=== PATIENT | female | born 1935 | race Caucasian/White ===

== ENCOUNTER 2019-12-09 20:01 | Inpatient (IN) | payer MEDICARE, SELFPAY ==
[2019-12-09 20:20] VITALS: BP 99/36; PULSE 67; RESP 18; TEMP 36.8; O2SAT 95
--- NOTE | 2019-12-09 20:52 | PCM.HP.STD ---
Problem List (1) Debility Status: Acute (2) Chronic diarrhea Status: Chronic (3) Nausea & vomiting Status: Acute (4) Fall Status: Acute (5) Closed head injury Status: Acute (6) Hypomagnesemia Status: Acute (7) Hypokalemia Status: Acute (8) Iron deficiency anemia Status: Acute (9) Chronic diastolic (congestive) heart failure Status: Chronic (10) Esophageal stricture Status: Chronic (11) NSTEMI (non-ST elevated myocardial infarction) Status: Chronic (12) HTN (hypertension) Status: Chronic (13) GERD (gastroesophageal reflux disease) Status: Chronic (14) Hypothyroid Status: Chronic (15) HLD (hyperlipidemia) Status: Chronic (16) CAD (coronary artery disease) Status: Chronic Comment: 1978 went to [place] for an angioplasty History of Present Illness Date of Admission: 12/09/19 Chief Complaint: Here for rehabilitation, strengthening, prior to discharge home alone. The patient is a 84 year old Female with below past medical history with followin12/05/2019 Admit to [facility]. Chronic diarrhea x 1 month, nausea, vomiting, fall 1 day prior to admission. Diarrhea every 15 minutes. Diarrhea improved to 3 times per day with Imodium. Fell, hit head. Decreased appetite, but drinking fluids. Replete Magnesium, Replete Potassium. Replace Pantoprazole with Famotidine due to hypomagnesemia. IV Fluids, stool studies for chronic diarrhea, CT abdomen/pelvis negative. IV Fluids, IV Zofran for nausea/vomiting. CT head shows contusion from fall, head injury. COVID-19 negative. 12/06/2019 Dr. Tyler, C. Diff negative. Recommend adding Ova and Parasites. Continue Culturelle 1 capsule daily. Outpatient colonoscopy. 12/08/2019 Diarrhea improving on Flagyl x 1 week. PT [facility]. Continue to replete Magnesium, Potassium. Fecal leukocytes positive, suggesting infection. on Flagyl x 1 week. IV iron for iron deficiency anemia. 12/09/2019 Admit to TCU with debility, here for rehabilitation, strengthening, prior to discharge home alone. Past Medical History Past Medical History (Chronic Problems): Chronic Problems Chronic diarrhea (Chronic) Chronic diastolic (congestive) heart failure (Chronic) Esophageal stricture (Chronic) NSTEMI (non-ST elevated myocardial infarction) (Chronic) H/O angioplasty (Chronic) in [place] in 1978 after [place] HTN (hypertension) (Chronic) GERD (gastroesophageal reflux disease) (Chronic) Hypothyroid (Chronic) HLD (hyperlipidemia) (Chronic) Hx of myocardial infarction (Chronic) CAD (coronary artery disease) (Chronic) 1978 went to [facility] for an angioplasty Allergies morphine Adverse Reaction (Verified 01/20/16 09:37) Nausea naproxen sodium [From Aleve] Adverse Reaction (Verified 01/20/16 09:37) Upset Stomach prednisone Adverse Reaction (Verified 01/20/16 09:37) Upset Stomach Home Medications: Ambulatory Orders Medication Instructions Recorded Aspirin [Aspirin, Baby] 81 mg PO DAILY@0800 01/20/16 Atorvastatin Calcium [Lipitor] 10 mg PO QHS 01/20/16 Calcium Carb/Vitamin D 1 tab PO BID 01/20/16 [Caltrate-600 With Vit D Tab] Estradiol [Estrace] 1 applic VAGINAL MOWEFR 01/20/16 Fluoxetine [Prozac] 10 mg PO DAILY 01/20/16 Levothyroxine [Synthroid] 100 mcg PO DAILY 01/20/16 Magnesium Oxide [Mag-Ox 400] 400 mg PO BID 01/20/16 Multivit-Min/FA/Lycopen/Lutein 1 each PO DAILY 01/20/16 [Centrum Silver Tablet] Acetaminophen 1,000 mg PO Q6H PRN PRN 12/09/19 Clopidogrel Bisulfate [Clopidogrel] 75 mg PO DAILY 12/09/19 Famotidine [Pepcid] 20 mg PO DAILY 12/09/19 Lactobacillus Rhamnosus GG 1 ea PO DAILY 12/09/19 [Culturelle] Losartan Potassium [Cozaar] 100 mg PO DAILY 12/09/19 Melatonin 3 mg PO QHS 12/09/19 Metoprolol(XL)Succ [Toprol Xl 150 mg PO DAILY 12/09/19 (Beta Merlin)] Metronidazole [Flagyl] 250 mg PO Q8 12/09/19 Christmas-3 Fatty Acids/Fish Oil [Fish 2 cap PO DAILY 12/09/19 Oil 1,000 mg Capsule] Ondansetron [Zofran Odt] 4 mg PO Q8H PRN PRN 12/09/19 Surgical History: angioplasty, appendectomy, cataract - BL, cholecystectomy - Laparosocopic., - - Breast biopsy, with an incidental appy, partial thyroidectomy for what sounds like a goiter Psychiatric History: No pertinent psych hx, - - denies any psych hx but she is taking Prozac [employer]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 Review of Systems Constitutional: Denies: Chills, Fever, Weight Change HEENT: Denies: Head Aches, Sinus Congestion, Sinus Drainage Cardiovascular: Denies: Chest Pain, Palpitations Respiratory: Denies: Cough, Shortness of breath at rest, Sputum production Gastrointestinal: Denies: Abdominal Pain, Nausea, Vomiting Genitourinary: Denies: Dysuria Musculoskeletal: Denies: Joint Pain, Joint Tenderness Skin: Denies: Rash, Wounds Neurological: Denies: Numbness, Tingling, Focal weakness Psychiatric: Denies: Anxiety, Depression, Homicidal Ideations, Suicidal Ideations Hematologic/ Lymphatic: Denies: Easy Bruising, Easy Bleeding VTE Information - Inpt Only VTE Present on Admission: No VTE Mechan Device Prophylaxis: Knee High CINDY Hose VTE Pharm Prophylaxis ordered?: No Reason prophylaxis not ordered:: Treatment Not Indicated - Already on dual antiplatelet therapy, has iron deficiency anemia. Patient Problems: Active and Suspected Problems Debility (Acute) Nausea & vomiting (Acute) Fall (Acute) Closed head injury (Acute) Hypomagnesemia (Acute) Hypokalemia (Acute) Iron deficiency anemia (Acute) - Physical Exam Vitals/I&O's: Vital Signs Temp Pulse Resp BP Pulse Ox 98.3 F 67 18 99/36 L 95 12/09/19 20:20 12/09/19 20:20 12/09/19 20:20 12/09/19 20:20 12/09/19 20:20 Oxygen Delivery Method Room Air General: Alert, Oriented x3, Cooperative HEENT: Atraumatic, PERRLA, EOMI, Normocephalic Neck: Supple, No JVD, Negative Carotid Bruits Lungs: Clear to auscultation, Normal air movement Cardiovascular: Regular rate, No murmurs Abdomen: Bowel Sounds Present, Soft, Non Tender Extremities: No edema, Capillary Refill Less than 3 Seconds Skin: No rashes, No breakdown Musculoskeletal: No Tenderness to Palpation of Joints or Extremities Neurological: Cranial nerves II-XII grossly intact Psych/Mental Status: Normal Affect, Appropriate Current Medications Acetaminophen (Tylenol) 1,000 mg PO Q6H PRN PRN PRN Reason: Pain 1-10/10 or Fever Aspirin (Aspirin, Baby) 81 mg PO DAILY@0800 [facility] Atorvastatin Calcium (Lipitor) 10 mg PO QHS [facility] Clopidogrel Bisulfate (Plavix) 75 mg PO DAILY [facility] Famotidine (Pepcid) 20 mg PO DAILY [facility] Fluoxetine HCl (Prozac) 10 mg PO DAILY [facility] Levothyroxine Sodium (Synthroid) 100 mcg PO DAILY [facility] Losartan Potassium (Cozaar) 100 mg PO DAILY [facility] Magnesium Oxide (Mag-Ox 400) 400 mg PO BID [facility] Melatonin (Melatonin) 3 mg PO QHS [facility] Metoprolol Succinate (Toprol Xl (Beta Merlin)) 150 mg PO DAILY [facility] Metronidazole (Flagyl) 250 mg PO Q8 [facility] Stop: 12/13/19 06:01 Multivitamins/Minerals (Multivitamin With Minerals (Bkc)) 1 tablet PO DAILY@1200 [facility] Non-Formulary Medication (Calcium Carb/Vitamin D) 1 tab PO BID [facility] Non-Formulary Medication (Estradiol [Estrace]) 1 applic VAGINAL MOWEFR [facility] Non-Formulary Medication (Lactobacillus Rhamnosus Gg) 1 ea PO DAILY [facility] [id number] Ethyl Esters (Lovaza) 2 gm PO DAILY [facility] Ondansetron HCl (Zofran Odt) 4 mg PO Q8H PRN PRN PRN Reason: NAUSEA/VOMITING Tuberculin PPD (Tubersol, Aplisol, Ppd) 5 tu ID X1 ONE Stop: 12/10/19 10:01 Tuberculin PPD (Tubersol, Aplisol, Ppd) 5 tu ID X1 ONE Stop: 12/17/19 10:01 Assessment/Plan All Active Problems Debility (Acute) Nausea & vomiting (Acute) Fall (Acute) Closed head injury (Acute) Hypomagnesemia (Acute) Hypokalemia (Acute) Iron deficiency anemia (Acute) Elevated troponin (Acute) Fatigue (Acute) 84 year old female with below past medical history hospitalized for chronic diarrhea, fall with head injury, complicated by hypomagnesemia, hypokalemia, acute kidney injury, admitted to TCU with debility, here for rehabilitation, strengthening, prior to discharge home alone. Debility - PT/OT. Pain - Tylenol 1000MG Q6H PRN pain (1-10). Bowel - Hold bowel regimen due to chronic diarrhea. Adult immunization - Administer Prevnar 13, Pneumovax 23, Fluzone as appropriate. DVT prophylaxis - Hold, on dual antiplatelet therapy, history of anemia. Coronary Artery Disease - Metoprolol succinate 150MG daily, Losartan 100MG daily, Plavix 75MG daily, Aspirin 81MG daily. Hyperlipidemia - Atorvastatin 10MG QHS (High intensity statin not tolerated?), Lovaza 2GM daily (No evidence Lovaza decreases CV risk, consider Vascepa 2GM BID as outpatient. Calcium deficiency - Calcium D BID. Nutrition - MVI daily, Ensure 120ML 4x/day. Atrophic Vaginitis - Estrace PV MWF. GERD - Famotidine 20MG daily. Depression - Fluoxetine 10MG daily, stable chronic usp use, GDR not recommended. Chronic diarrhea - Lactobacillus 1 tablet BID, Flagyl 250MG Q8H thru 12/13/2019, Diarrhea 4x/day. Hypothyroidism - Levothyroxine 100MCG daily. Hypomagnesemia - Magnesium Oxide 400MG BID. Insomnia - Melatonin 3MG QHS. Nausea - Zofran 4MG Q8H PRN. Iron deficiency anemia - Rx Ferrex 150MG daily.
[2019-12-09 21:00] VITALS: BMI 29.2
[2019-12-09 21:03] VITALS: BMI 29.3
[2019-12-09] MEDS: Atorvastatin Calcium 10 MG Tablet PO (21:24)
[2019-12-09] MEDS: MELATONIN 3 MG TABLET PO (21:24)
[2019-12-09 23:32] VITALS: PULSE 64; O2SAT 98
[2019-12-09 23:46] VITALS: BP 108/60
[2019-12-10] MEDS: Magnesium Oxide 400 MG Tablet PO ×2 (06:36→16:53)
[2019-12-10] MEDS: Levothyroxine 100 MCG Tablet PO (06:36)
[2019-12-10] MEDS: Clopidogrel Bisulfate 75 MG Tablet PO (06:36)
[2019-12-10] MEDS: FLUoxetine 10 MG Capsule PO (06:36)
[2019-12-10 06:40] VITALS: BP 124/68; PULSE 69
[2019-12-10] MEDS: Famotidine 20 MG Tablet PO (06:40)
[2019-12-10] MEDS: Metoprolol(XL)Succ 50 MG Tablet 150 MG PO (06:40)
[2019-12-10] MEDS: Losartan Potassium 100 MG Tablet PO (06:40)
[2019-12-10 06:53] LABS: Absolute Lymphocyte Count 1.32 X10^3/uL (0.83-4.51); Absolute Neutrophil Count 5.1 X10^3/uL (2.0-7.7); Basophil# 0.04 X10^3/uL; Basophil% 0.5 % (0-1); Eosinophil# 0.52 X10^3/uL; Eosinophils% 6.6 % (0-5); Hemoglobin 8.7 g/dL (12.0-15.0); Lymphocyte # 1.32 X10^3/ul (4.0); Lymphocyte % 16.7 % (19-41); Mean Corp Hgb Conc 32.2 g/dL (32-36); Mean Corpuscular Hgb 31.4 pg (27.0-32.0); Mean Corpuscular Volume 97.5 fL (81-99); Monocyte# 0.92 X10^3/uL; Monocyte% 11.7 % (0-10); NRBC Flagged by Analyzer 0 % (0-5); Neutrophil # 5.06 X10^3/uL (2.7-7.7); Neutrophil % 64.1 % (47-70); Platelet Count 204 K/mm3 (150-450); RBC Distribution Width CV 13.6 % (11.6-14.6); Red Blood Count 2.77 M/mm3 (4.2-5.4); White Blood Count 7.9 K/mm3 (4.4-11.0)
[2019-12-10 07:06] LABS: Anion Gap 6 (5-15); BUN 9 mg/dL (7-18); BUN/Creat Ratio 13.7 RATIO (10-20); Calcium,Total 8.7 mg/dL (8.5-10.1); Chloride 107 mmol/L (98-107); Creatinine, Serum 0.66 mg/dL (0.55-1.02); EST Glomerular Filtration Rate 91 mL/min (>60); Est Glom Filt Rate - Afr Amer 110 mL/min (>60); Glucose 106 mg/dL (74-106); Sodium Level 138 mmol/L (136-145)
[2019-12-10] MEDS: Aspirin 81 MG TAB.CHEW PO (09:17)
[2019-12-10] MEDS: Calcium Carb/Vitamin D 1 TABLET Tablet PO ×2 (09:17→16:53)
[2019-12-10] MEDS: Omega-3 Acid Ethyl Esters 1 GM Capsule 2 GM PO (09:18)
[2019-12-10] MEDS: Tuberculin,Purif.prot.deriv. 50 TU/ML Vial 5 ML ID (10:41)
[2019-12-10] MEDS: Multivitamins,Ther W-Minerals Tablet 1 TABLET PO (10:41)
[2019-12-10] MEDS: Iron Polysaccharide Complex 150 MG CAPSULE PO (10:41)
--- NOTE | 2019-12-10 10:47 | CASEMGMT ---
Social Work Discussed patient's code status. Pt confirmed full code. MOLST form completed and placed in chart. ADELAIDE AvelarW
--- NOTE | 2019-12-10 13:53 | PHA.CONS_ITS ---
<Freddy Bray C - Last Filed: 12/10/19 13:53> Progress Note - Pharmacy Subjective: [] TCU Admission Objective: Allergies morphine Adverse Reaction (Verified 01/20/16 09:37) Nausea naproxen sodium [From Aleve] Adverse Reaction (Verified 01/20/16 09:37) Upset Stomach prednisone Adverse Reaction (Verified 01/20/16 09:37) Upset Stomach Current Medications Generic Name Dose Route Start Last Admin Trade Name Freq PRN Reason Stop Dose Admin Acetaminophen 1,000 mg 12/09/19 20:39 Tylenol PO Q6H PRN PRN Pain 1-05/16 or Fever Aspirin 81 mg 12/10/19 08:00 12/10/19 09:17 Aspirin, Baby PO 81 mg DAILY@0800 VERA Administration Atorvastatin Calcium 10 mg 12/09/19 22:00 12/09/19 21:24 Lipitor PO 10 mg QHS [facility] Administration Calcium/Vitamin D 1 tablet 12/10/19 08:00 12/10/19 09:17 Os-Riley 500mg + D PO 1 tablet 0800,1800 [facility] Administration Clopidogrel Bisulfate 75 mg 12/10/19 06:00 12/10/19 06:36 Plavix PO 75 mg DAILY [facility] Administration Famotidine 20 mg 12/10/19 06:00 12/10/19 06:40 Pepcid PO 20 mg DAILY [facility] Administration Fluoxetine HCl 10 mg 12/10/19 06:00 12/10/19 06:36 Prozac PO 10 mg DAILY [facility] Administration Lactobacillus Acidophilus 1 tablet 12/10/19 06:00 12/10/19 06:36 Acidophilus PO 1 tablet DAILY [facility] Administration Levothyroxine Sodium 100 mcg 12/10/19 06:00 12/10/19 06:36 Synthroid PO 100 mcg DAILY [facility] Administration Losartan Potassium 100 mg 12/10/19 06:00 12/10/19 06:40 Cozaar PO 100 mg DAILY [facility] Administration Magnesium Oxide 400 mg 12/10/19 06:00 12/10/19 06:36 Mag-Ox 400 PO 400 mg BID [facility] Administration Melatonin 3 mg 12/09/19 22:00 12/09/19 21:24 Melatonin PO 3 mg QHS [facility] Administration Metoprolol Succinate 150 mg 12/10/19 06:00 12/10/19 06:40 Toprol Xl (Beta Merlin) PO 150 mg DAILY [facility] Administration Metronidazole 250 mg 12/09/19 22:00 12/10/19 12:56 Flagyl PO 12/13/19 06:01 250 mg Q8 [facility] Administration Multivitamins/Minerals 1 tablet 12/10/19 12:00 12/10/19 10:41 Multivitamin With Minerals (Bkc) PO 1 tablet DAILY@1200 [facility] Administration Non-Formulary Medication 1 applic 12/11/19 22:00 Estradiol [Estrace] VAGINAL MOWEFR [facility] Nutritional Formula (Lactose Free) 120 ml 12/09/19 22:00 12/10/19 10:41 Ensure Enlive PO 120 ml 4X/DAY [facility] Administration Qqskt-2-Xafs Ethyl Esters 2 gm 12/10/19 08:00 12/10/19 09:18 Lovaza PO 2 gm DAILY@0800 [facility] Administration Ondansetron HCl 4 mg 12/09/19 20:39 Zofran Odt PO Q8H PRN PRN NAUSEA/VOMITING Polysaccharide Iron Complex 150 mg 12/10/19 08:30 12/10/19 10:41 Ferrex 150 PO 150 mg DAILYCM [facility] Administration Tuberculin PPD 5 tu 12/17/19 10:00 Tubersol, Aplisol, Ppd ID 12/17/19 10:01 X1 ONE Problem List Debility (Acute) Chronic diarrhea (Chronic) Nausea & vomiting (Acute) Fall (Acute) Closed head injury (Acute) Hypomagnesemia (Acute) Hypokalemia (Acute) Iron deficiency anemia (Acute) Chronic diastolic (congestive) heart failure (Chronic) Esophageal stricture (Chronic) NSTEMI (non-ST elevated myocardial infarction) (Chronic) Vital Signs Temp Pulse Resp BP Pulse Ox 98.3 F 69 18 124/68 H 98 12/09/19 20:20 12/10/19 06:40 12/09/19 20:20 12/10/19 06:40 12/09/19 23:32 Oxygen Delivery Method Room Air Weight: 70.307 kg Body Mass Index (BMI) 29.2 Sodium 138 mmol/L (136-145) 12/10/19 06:30 Potassium 4.0 mmol/L (3.5-5.1) 12/10/19 06:30 Chloride 107 mmol/L (98-107) 12/10/19 06:30 Carbon Dioxide 25.0 mmol/L (21.0-32.0) 12/10/19 06:30 Anion Gap 6 (5-15) 12/10/19 06:30 BUN 9 mg/dL (7-18) 12/10/19 06:30 Creatinine 0.66 mg/dL (0.55-1.02) 12/10/19 06:30 Est GFR (MDRD) Af Amer 110 mL/min (>60) 12/10/19 06:30 Est GFR (MDRD) Non-Af 91 mL/min (>60) 12/10/19 06:30 BUN/Creatinine Ratio 13.7 RATIO (10-20) 12/10/19 06:30 Glucose 106 mg/dL (74-106) 12/10/19 06:30 Assessment/Plan: 1) Pain: Acetaminophen 1000mg po q6h prn for pain 1-10. Please continue to monitor prn usage and for signs/symptoms of increased/decreased pain. *2) Hyperlipidemia: Atorvastatin 10mg po qhs. Lovaza 2gm po daily. I could not find a recent Lipid Panel or LFT in the pt's chart. Please consider a yearly Lipid Panel and LFT while the pt is taking a statin. Thanks *3) Hypothyroidism: Levothyroxine 100mcg po daily. I could not find a recent TSH in the pt's chart. Please consider a yearly TSH while the pt is on Levothyroxine. Thanks 4) Nausea: Ondansetron 4mg po q8h prn for nausea. Please continue to monitor prn usage and for signs/symptoms of increased nausea *5) Hypomagnesemia: Magnesium Oxide 400mg po bid. I could not find a recent Magnesium level in the pt's chart. Please consider a yearly Magnesium Level while the pt is on Magnesium Oxide. Thanks 6) GERD: Famotidine 20mg po daily. Pt's SrCr, adjusted for age, is 0.8. Pt's CrCl, adjusted for age, is 39.5ml/min. Please continue to monitor. Please continue to monitor for signs/symptoms of GERD. 7) Calcium Deficiency: Calcium with D po bid. Pt's Calcium level from 12/10/19 was within normal limits at 8.7. Please continue to monitor. 8) CAD: Aspirin 81mg po daily, Plavix 75mg po daily, Losartan 100mg po daily, Metoprolol Succinate 150mg po daily. Pt's pulse rate, rhythm and strength are all within goal. Pt's average BP is 116.5/54.75. Please continue to monitor. *9) Chronic Diarrhea: Acidophilus 1 tablet po bid, Metronidazole 250mg po q8h thru 12/13/2019. Please continue to monitor signs/symptoms of diarrhea. Metronidazole says thru 12/12 and the order on the MAR stops 12/12 after the 0600 dose. Please clarify stop date and time. Thanks *10) Estrace Cream: Medication is non formulary. Please re evaluate need for continued use while pt is in TCU. Thanks Psychotropic Medications: Insomnia: Melatonin 3mg po qhs. Medication will be due for a GDR 03/2020 *Depression: Fluoxetine 10mg po daily. See physicians note about GDR --Fluoxetine is on the BEERS list. Fluoxetine may cause ataxia, impaired psychomotor function, syncope, additional falls. If one of the drugs must be used, consider reducing use of other PROFESSOR OF EDUCATION-active medications that increase risk of falls and fractures (i.e., anticonvulsants, opioid receptor agonists, antipsychotics, antidepressants, nonbenzodiazepine and benzodiazepine receptor agonists, other sedatives and hypnotics) and implement other strategies to reduce fall risk. -it is recommended that it's use be avoided unless safer alternatives are not available. Please document a risk vs benefit for continued use of Fluoxetine. Thanks Unnecessary Medications: Bowel Regimen: none Date of Note:: 12/10/19 - Provider Comments Provider responsibility: Provider responsible to enter orders to implement recommendations <Scar Lemus Chi - Last Filed: 12/10/19 17:09> Progress Note - Pharmacy Subjective: [] Objective: Allergies morphine Adverse Reaction (Verified 01/20/16 09:37) Nausea naproxen sodium [From Aleve] Adverse Reaction (Verified 01/20/16 09:37) Upset Stomach prednisone Adverse Reaction (Verified 01/20/16 09:37) Upset Stomach Current Medications Generic Name Dose Route Start Last Admin Trade Name Freq PRN Reason Stop Dose Admin Acetaminophen 1,000 mg 12/09/19 20:39 Tylenol PO Q6H PRN PRN Pain 1-10/10 or Fever Aspirin 81 mg 12/10/19 08:00 12/10/19 09:17 Aspirin, Baby PO 81 mg DAILY@0800 [facility] Administration Atorvastatin Calcium 10 mg 12/09/19 22:00 12/09/19 21:24 Lipitor PO 10 mg QHS [facility] Administration Calcium/Vitamin D 1 tablet 12/10/19 08:00 12/10/19 16:53 Os-Riley 500mg + D PO 1 tablet 0800,1800 [facility] Administration Clopidogrel Bisulfate 75 mg 12/10/19 06:00 12/10/19 06:36 Plavix PO 75 mg DAILY [facility] Administration Famotidine 20 mg 12/10/19 06:00 12/10/19 06:40 Pepcid PO 20 mg DAILY [facility] Administration Fluoxetine HCl 10 mg 12/10/19 06:00 12/10/19 06:36 Prozac PO 10 mg DAILY [facility] Administration Lactobacillus Acidophilus 1 tablet 12/10/19 06:00 12/10/19 06:36 Acidophilus PO 1 tablet DAILY [facility] Administration Levothyroxine Sodium 100 mcg 12/10/19 06:00 12/10/19 06:36 Synthroid PO 100 mcg DAILY [facility] Administration Losartan Potassium 100 mg 12/10/19 06:00 12/10/19 06:40 Cozaar PO 100 mg DAILY [facility] Administration Magnesium Oxide 400 mg 12/10/19 06:00 12/10/19 16:53 Mag-Ox 400 PO 400 mg BID [facility] Administration Melatonin 3 mg 12/09/19 22:00 12/09/19 21:24 Melatonin PO 3 mg QHS [facility] Administration Metoprolol Succinate 150 mg 12/10/19 06:00 12/10/19 06:40 Toprol Xl (Beta Merlin) PO 150 mg DAILY [facility] Administration Metronidazole 250 mg 12/09/19 22:00 12/10/19 12:56 Flagyl PO 12/13/19 06:01 250 mg Q8 [facility] Administration Multivitamins/Minerals 1 tablet 12/10/19 12:00 12/10/19 10:41 Multivitamin With Minerals (Bkc) PO 1 tablet DAILY@1200 [facility] Administration Non-Formulary Medication 1 applic 12/11/19 22:00 Estradiol [Estrace] VAGINAL MOWEFR [facility] Nutritional Formula (Lactose Free) 120 ml 12/09/19 22:00 12/10/19 16:53 Ensure Enlive PO 120 ml 4X/DAY [facility] Administration Pzhbk-7-Hqdh Ethyl Esters 2 gm 12/10/19 08:00 12/10/19 09:18 Lovaza PO 2 gm DAILY@0800 [facility] Administration Ondansetron HCl 4 mg 12/09/19 20:39 Zofran Odt PO Q8H PRN PRN NAUSEA/VOMITING Polysaccharide Iron Complex 150 mg 12/10/19 08:30 12/10/19 10:41 Ferrex 150 PO 150 mg DAILYCM [facility] Administration Tuberculin PPD 5 tu 12/17/19 10:00 Tubersol, Aplisol, Ppd ID 12/17/19 10:01 X1 ONE Problem List Debility (Acute) Chronic diarrhea (Chronic) Nausea & vomiting (Acute) Fall (Acute) Closed head injury (Acute) Hypomagnesemia (Acute) Hypokalemia (Acute) Iron deficiency anemia (Acute) Chronic diastolic (congestive) heart failure (Chronic) Esophageal stricture (Chronic) NSTEMI (non-ST elevated myocardial infarction) (Chronic) Vital Signs Temp Pulse Resp BP Pulse Ox 98.8 F 69 17 135/55 H 96 12/10/19 14:08 12/10/19 14:08 12/10/19 14:08 12/10/19 14:08 12/10/19 14:08 Oxygen Delivery Method Room Air Weight: 70.307 kg Body Mass Index (BMI) 29.2 Sodium 138 mmol/L (136-145) 12/10/19 06:30 Potassium 4.0 mmol/L (3.5-5.1) 12/10/19 06:30 Chloride 107 mmol/L (98-107) 12/10/19 06:30 Carbon Dioxide 25.0 mmol/L (21.0-32.0) 12/10/19 06:30 Anion Gap 6 (5-15) 12/10/19 06:30 BUN 9 mg/dL (7-18) 12/10/19 06:30 Creatinine 0.66 mg/dL (0.55-1.02) 12/10/19 06:30 Est GFR (MDRD) Af Amer 110 mL/min (>60) 12/10/19 06:30 Est GFR (MDRD) Non-Af 91 mL/min (>60) 12/10/19 06:30 BUN/Creatinine Ratio 13.7 RATIO (10-20) 12/10/19 06:30 Glucose 106 mg/dL (74-106) 12/10/19 06:30 Assessment/Plan: Psychotropic Medications: Unnecessary Medications: Bowel Regimen: - Provider Comments Provider responsibility: Provider responsible to enter orders to implement recommendations Provider Comments to Recommendations by Pharmacy: Agree
[2019-12-10 14:08] VITALS: BP 135/55; PULSE 69; RESP 17; TEMP 37.1; O2SAT 96
--- NOTE | 2019-12-10 14:51 | NURSING ---
CALLED R' SON TO GIVE DAILY UPDATE. NO ANSWER, LEFT VM.
--- NOTE | 2019-12-10 15:04 | NURSING ---
SPOKE WITH R' DAUGHTER AND GAVE HER UPDATE. ALSO, NOTIFIED HER OF COVID TESTING.
[2019-12-10] MEDS: Atorvastatin Calcium 10 MG Tablet PO (21:52)
[2019-12-10] MEDS: MELATONIN 3 MG TABLET PO (21:52)
[2019-12-11 06:01] VITALS: BP 130/60; PULSE 80
[2019-12-11] MEDS: Metoprolol(XL)Succ 50 MG Tablet 150 MG PO (06:01)
[2019-12-11] MEDS: Losartan Potassium 100 MG Tablet PO (06:01)
[2019-12-11] MEDS: Famotidine 20 MG Tablet PO (06:01)
[2019-12-11] MEDS: Levothyroxine 100 MCG Tablet PO (06:01)
[2019-12-11] MEDS: FLUoxetine 10 MG Capsule PO (06:02)
[2019-12-11] MEDS: Clopidogrel Bisulfate 75 MG Tablet PO (06:02)
[2019-12-11] MEDS: Magnesium Oxide 400 MG Tablet PO ×2 (06:02→17:29)
[2019-12-11] MEDS: Iron Polysaccharide Complex 150 MG CAPSULE PO (09:21)
[2019-12-11] MEDS: Omega-3 Acid Ethyl Esters 1 GM Capsule 2 GM PO (09:21)
[2019-12-11] MEDS: Aspirin 81 MG TAB.CHEW PO (09:21)
[2019-12-11] MEDS: Calcium Carb/Vitamin D 1 TABLET Tablet PO ×2 (09:21→17:30)
[2019-12-11] MEDS: Multivitamins,Ther W-Minerals Tablet 1 TABLET PO (12:07)
--- NOTE | 2019-12-11 14:29 | CHAPLAIN ---
Type of Pastoral Visit _x__ Initial Visit ___ Follow-up Visit ___ On-call Visit ___ General Patient Visit ___ Spiritual Assessment ___ Family Conference ___ Bereavement ___ Rapid Response ___ Code Blue ___ Other (describe below) Pastoral Care Referral From _x__ Patient ___ Family ___ Nurse ___ Physician ___ Hat Cone Inspector ___ Self Rising Flour Mixer ___ Other (describe below) Sacrament/Intervention _x__ Active listening ___ Anointing ___ Congregation ___ Bereavement ___ Communion _x__ Leah exploration ___ _x__ Life review _x__ Prayer ___ Reconciliation ___ Sacrament of Sick _x__ Supportive presence ___ Wedding ___ Other (describe below) Pastoral Comments this visit was conducted by phone as patient is in isolation pending further testing; pt requested encounter and support of spiritual care; pt describes her feelings of being 'down and depressed' although affect is upbeat and she describes her coping abilities; pt has strong connection to leah and her local judaism; pt has family; pt goal is to 'get to the reason for my issues' and 'to get home'; pt would like further encounters for spiritual care support
[2019-12-11] MEDS: Atorvastatin Calcium 10 MG Tablet PO (21:43)
[2019-12-12 05:59] VITALS: BP 92/49; PULSE 70
[2019-12-12] MEDS: Metoprolol(XL)Succ 50 MG Tablet 150 MG PO (05:59)
[2019-12-12] MEDS: Famotidine 20 MG Tablet PO (06:00)
[2019-12-12] MEDS: FLUoxetine 10 MG Capsule PO (06:00)
[2019-12-12] MEDS: Magnesium Oxide 400 MG Tablet PO ×2 (06:00→16:58)
[2019-12-12] MEDS: Clopidogrel Bisulfate 75 MG Tablet PO (06:00)
[2019-12-12] MEDS: Levothyroxine 100 MCG Tablet PO (06:01)
[2019-12-12] MEDS: Furosemide 20 MG Tablet PO (09:46)
[2019-12-12] MEDS: Aspirin 81 MG TAB.CHEW PO (09:47)
[2019-12-12] MEDS: Calcium Carb/Vitamin D 1 TABLET Tablet PO ×2 (09:47→16:59)
[2019-12-12] MEDS: Iron Polysaccharide Complex 150 MG CAPSULE PO (09:47)
[2019-12-12] MEDS: Losartan Potassium 100 MG Tablet PO (09:47)
[2019-12-12] MEDS: Omega-3 Acid Ethyl Esters 1 GM Capsule 2 GM PO (09:48)
[2019-12-12] MEDS: Multivitamins,Ther W-Minerals Tablet 1 TABLET PO (11:16)
[2019-12-12 14:35] VITALS: BP 129/41; PULSE 65; RESP 16; TEMP 36.9; O2SAT 95
--- NOTE | 2019-12-12 14:53 | NURSING ---
spoke with daughter about update.
--- NOTE | 2019-12-12 15:02 | NURSING ---
Addendum entered by Yennifer Kitchen 12/12/19 17:49: CXR to be done. Addendum entered by Yennifer Kitchen 12/12/19 17:40: Dr Lemus aware. No new orders received. Original Note: PPD with bruising around area. hard to assess area. Insertion site with slight raise. 5 mm measured at this time.
--- NOTE | 2019-12-12 18:27 | RAD_ITS ---
STUDY: X-RAY CHEST REASON FOR EXAM: Female, 84 years old. equivocal ppd TECHNIQUE: PA and lateral chest COMPARISON: 01/20/2016 FINDINGS: There is stable cardiomegaly. There is left lower lobe infiltrate atelectasis and pleural effusion. There is also likely small right pleural effusion. Normal mediastinum and sidney. Normal visualized pulmonary arteries. Normal visualized aortic arch and descending thoracic aorta. There is generalized osteopenia. There are mild degenerative changes of the thoracic spine with mild kyphosis. There is no demonstrated abnormality of the visualized soft tissue structures of the upper abdomen. RAD/Chest PA and Lateral IMPRESSION: Stable cardiomegaly. Left lower lobe infiltrate, atelectasis and small pleural effusion likely pneumonia; the findings are nonspecific and may be bacterial versus viral including atypical viral pneumonia, also active TB cannot be excluded. Likely small right pleural effusion Electronically Signed: Bernardo Pickett, at 18:42 EDT Tel , Service support ,
--- NOTE | 2019-12-12 19:36 | NURSING ---
Dr. Lemus updated on CXR. New order for stat TB Gold and I.S. Notify Dr. Lemus if pt begins to cough or becomes symptomatic.
[2019-12-12 20:06] VITALS: RESP 16; O2SAT 94
[2019-12-12 21:00] VITALS: O2SAT 98
[2019-12-12] MEDS: Atorvastatin Calcium 10 MG Tablet PO (21:36)
[2019-12-13] MEDS: Menthol/Lanolin/Calamine/Znox 113 GM Tube 1 APPLIC TOPICAL ×2 (06:15→20:47)
[2019-12-13 06:16] VITALS: BP 125/64; PULSE 80
[2019-12-13] MEDS: Famotidine 20 MG Tablet PO (06:16)
[2019-12-13] MEDS: Magnesium Oxide 400 MG Tablet PO ×2 (06:16→16:40)
[2019-12-13] MEDS: Clopidogrel Bisulfate 75 MG Tablet PO (06:16)
[2019-12-13] MEDS: Levothyroxine 100 MCG Tablet PO (06:16)
[2019-12-13] MEDS: FLUoxetine 10 MG Capsule PO (06:16)
[2019-12-13] MEDS: Metoprolol(XL)Succ 50 MG Tablet 150 MG PO (06:16)
[2019-12-13] MEDS: Furosemide 20 MG Tablet PO (06:16)
[2019-12-13] MEDS: Losartan Potassium 100 MG Tablet PO (08:48)
[2019-12-13] MEDS: Aspirin 81 MG TAB.CHEW PO (08:48)
[2019-12-13] MEDS: Iron Polysaccharide Complex 150 MG CAPSULE PO (08:48)
[2019-12-13] MEDS: Calcium Carb/Vitamin D 1 TABLET Tablet PO ×2 (08:48→16:41)
[2019-12-13] MEDS: Omega-3 Acid Ethyl Esters 1 GM Capsule 2 GM PO (08:48)
--- NOTE | 2019-12-13 11:35 | CASEMGMT ---
Social Work Insurance issued LCD 12/14, DC 12/15. Spoke with pt whom is agreeable. Pt agreeable to [facility] - provided list- pt chose [facility]. Referral made for PT/OT/SN. Pt requesting FWW. Referral made to [facility]. provided [employer] resources. Plan: DC home alone with [facility] PT/OT/SN. [employer] - FWW. Brenna Galvez, [place] VIRKW
[2019-12-13] MEDS: Multivitamins,Ther W-Minerals Tablet 1 TABLET PO (12:05)
[2019-12-13] MEDS: levoFLOXacin 250 MG Tablet PO (13:35)
--- NOTE | 2019-12-13 14:36 | PCM.DC ---
- Discharge Diagnoses Current Active Problems: Current Active and Chronic Problems Debility (Acute) Chronic diarrhea (Chronic) Nausea & vomiting (Acute) Fall (Acute) Closed head injury (Acute) Hypomagnesemia (Acute) Hypokalemia (Acute) Iron deficiency anemia (Acute) Chronic diastolic (congestive) heart failure (Chronic) Esophageal stricture (Chronic) NSTEMI (non-ST elevated myocardial infarction) (Chronic) You will use the following diet at home:: No restrictions, Regular Your food should be the consistency of: Regular Your liquids should be the consistency of: Regular/Thin Discharge Activity: Return to Normal Activity, May Shower, Use Walker Weight Bearing Status: Weight bearing as tolerated Call your doctor if you observe: Fever of 101 or Higher, Inability to urinate, Inability to have a bowel movement, Shortness of breath, Chest pain, Uncontrolled pain Allergies/Adverse Reactions: Allergies morphine Adverse Reaction (Verified 01/20/16 09:37) Nausea naproxen sodium [From Aleve] Adverse Reaction (Verified 01/20/16 09:37) Upset Stomach prednisone Adverse Reaction (Verified 01/20/16 09:37) Upset Stomach Medications to take at Discharge Aspirin [Aspirin, Baby] 81 mg PO DAILY@0800 01/20/16 Atorvastatin Calcium [Lipitor] 10 mg PO QHS 01/20/16 Calcium Carb/Vitamin D [Caltrate-600 With Vit D Tab] 1 tab PO BID 01/20/16 Estradiol [Estrace] 1 applic VAGINAL MOWEFR 01/20/16 Fluoxetine [Prozac] 10 mg PO DAILY 01/20/16 Levothyroxine [Synthroid] 100 mcg PO DAILY 01/20/16 Multivit-Min/FA/Lycopen/Lutein [Centrum Silver Tablet] 1 each PO DAILY 01/20/16 Acetaminophen 1,000 mg PO Q6H PRN PRN 12/09/19 Clopidogrel Bisulfate [Clopidogrel] 75 mg PO DAILY 12/09/19 Losartan Potassium [Cozaar] 100 mg PO DAILY 12/09/19 Melatonin 3 mg PO QHS 12/09/19 Metoprolol(XL)Succ [Toprol Xl (Beta Merlin)] 150 mg PO DAILY 12/09/19 [place]-3 Fatty Acids/Fish Oil [Fish Oil 1,000 mg Capsule] 2 cap PO DAILY 12/09/19 Famotidine [Pepcid] 20 mg PO DAILY #30 tab 12/13/19 Furosemide [Lasix] 20 mg PO DAILY #7 tab 12/13/19 Iron Polysaccharide Complex [Ferrex 150] 150 mg PO DAILYCM #30 cap 12/13/19 Lactobacillus Rhamnosus GG [Culturelle] 1 ea PO DAILY #60 cap 12/13/19 Magnesium Oxide [Mag-Ox 400] 400 mg PO BID #60 tab 12/13/19 Menthol/Lanolin/Calamine/Znox [Calmoseptine Ointment] 1 applic TOPICAL 0600,2200 tube 12/13/19 Mineral Oil/Petrolatum,White [Eucerin] 1 applic TOPICAL 2200 jar 12/13/19 levoFLOXacin tablet [Levaquin tablet] 250 mg PO DAILY@0600 #3 tab 12/13/19 The following prescriptions were given: Lactobacillus Rhamnosus GG [Culturelle] 1 ea PO DAILY #60 cap Transmission Status: Pending to [facility] Iron Polysaccharide Complex [Ferrex 150] 150 mg PO DAILYCM #30 cap Transmission Status: Pending to [facility] Furosemide [Lasix] 20 mg PO DAILY #7 tab Transmission Status: Pending to [facility] levoFLOXacin tablet [Levaquin tablet] 250 mg PO DAILY@0600 #3 tab Transmission Status: Pending to [facility] Magnesium Oxide [Mag-Ox 400] 400 mg PO BID #60 tab Transmission Status: Pending to [facility] Famotidine [Pepcid] 20 mg PO DAILY #30 tab Transmission Status: Pending to [facility] Primary Care Physician: Yared Burgess DO [Primary Care Provider] - Please follow up with your Primary Care Physician in: 1 week. Test Results: Test results from this visit will be discussed in further detail at your follow-up appointment, if applicable. Please Follow Up With: Dr. Cornelio Tyler (gastroenterology) When: 4 weeks Please Follow Up With: Dr. Burgess When: 1 week. Proposed Discharge Date: 12/16/19
--- NOTE | 2019-12-13 14:38 | PCM.DC.SUM ---
Discharge Date and Diagnosis - Problem List Patient Problems: Active and Suspected Problems Debility (Acute) Nausea & vomiting (Acute) Fall (Acute) Closed head injury (Acute) Hypomagnesemia (Acute) Hypokalemia (Acute) Iron deficiency anemia (Acute) Date of Admission: 12/09/19 Date of Discharge: 12/16/19 - Primary Discharge Diagnosis Active and Suspected Problems Debility (Acute) Nausea & vomiting (Acute) Fall (Acute) Closed head injury (Acute) Hypomagnesemia (Acute) Hypokalemia (Acute) Iron deficiency anemia (Acute) - Secondary Discharge Diagnosis Chronic Problems Chronic diarrhea (Chronic) Chronic diastolic (congestive) heart failure (Chronic) Esophageal stricture (Chronic) NSTEMI (non-ST elevated myocardial infarction) (Chronic) H/O angioplasty (Chronic) in [place] in 1978 after [place] HTN (hypertension) (Chronic) GERD (gastroesophageal reflux disease) (Chronic) Hypothyroid (Chronic) HLD (hyperlipidemia) (Chronic) Hx of myocardial infarction (Chronic) CAD (coronary artery disease) (Chronic) 1978 went to [place] for an angioplasty Hospital Course and Treatment Imaging Results: 12/10/19 05:31 Diet: Regular Diet Is pt able to select menu?: Yes Clinical Impression(s) from Imaging Studies Chest X-Ray 12/12/19 18:27 IMPRESSION: Stable cardiomegaly. Left lower lobe infiltrate, atelectasis and small pleural effusion likely pneumonia; the findings are nonspecific and may be bacterial versus viral including atypical viral pneumonia, also active TB cannot be excluded. Likely small right pleural effusion Electronically Signed: Bernardo iPckett, at 18:42 EDT Tel , Service support , Labs (Last 48 Hours) 12/10/19 12/12/19 11:41 20:30 COVID-19 (PAWAN) Not Detected TB Test (QFT) Nil Pending TB Test (QFT) Mitogen Pending TB Test (QFT) Ag 1 Pending TB Test (QFT) Ag 2 Pending TB Test (QFT) Pending TB Positive Criteria Pending Operations: None Procedures: None Summary of Care Provided: The patient is a 84 year old Female with below past medical history hospitalized for chronic diarrhea, fall with head injury, complicated by hypomagnesemia, hypokalemia, acute kidney injury, admitted to TCU with debility, here for rehabilitation, strengthening, prior to discharge home alone. On TCU: PPD 5mm equivocal, TB Gold Quant pending, CXR showed left lower lobe infiltrate. Presumptive pneumonia treated with Levaquin 250MG daily x 5 days. Edema treated with Lasix 20MG daily x 7 days. Ferrex 150MG daily added for iron deficiency anemia. Lactobacillus 1 tablet BID added for GI prophylaxis. Magnesium Oxide 400MG twice daily added for hypomagnesemia. PPI replaced with Famotidine 20MG daily secondary to hypomagnesemia. Resident will need outpatient colonoscopy to rule out microscopic colitis. Discharge home alone, [place] [facility] PT/OT/SN, [employer] Front Wheeled Walker. Patient Problems: Active and Suspected Problems Debility (Acute) Nausea & vomiting (Acute) Fall (Acute) Closed head injury (Acute) Hypomagnesemia (Acute) Hypokalemia (Acute) Iron deficiency anemia (Acute) - Physical Exam Vitals/I&O's: Vital Signs Temp Pulse Resp BP Pulse Ox 98.4 F 80 16 125/64 H 98 12/12/19 14:35 12/13/19 06:16 12/12/19 20:06 12/13/19 06:16 12/12/19 21:00 Oxygen Delivery Method Room Air Weight: 70.307 kg Body Mass Index (BMI) 29.2 Intake and Output for Last 24 Hours 12/11/19 12/12/19 12/13/19 23:59 23:59 23:59 Intake Total 755 / 755 600 / 600 360 / 360 Balance 755 / 755 600 / 600 360 / 360 Laboratory Results 12/12/19 20:30: TB Test (QFT) Nil Pending, TB Test (QFT) Mitogen Pending, TB Test (QFT) Ag 1 Pending, TB Test (QFT) Ag 2 Pending, TB Test (QFT) Pending, TB Positive Criteria Pending Current Medications Acetaminophen (Tylenol) 1,000 mg PO Q6H PRN PRN PRN Reason: Pain 1-10/10 or Fever Aspirin (Aspirin, Baby) 81 mg PO DAILY@0800 [facility] Last Admin: 12/13/19 08:48 Dose: 81 mg Documented by: Atorvastatin Calcium (Lipitor) 10 mg PO QHS [facility] Last Admin: 12/12/19 21:36 Dose: 10 mg Documented by: Calamine/Phenol (Calmoseptine Ointment) 1 applic TOPICAL 0600,2199 [facility]; Protocol Last Admin: 12/13/19 06:15 Dose: 1 applicatio Documented by: Calcium/Vitamin D (Os-Riley 500mg + D) 1 tablet PO 0800,1800 [facility] Last Admin: 12/13/19 08:48 Dose: 1 tablet Documented by: Clopidogrel Bisulfate (Plavix) 75 mg PO DAILY [facility] Last Admin: 12/13/19 06:16 Dose: 75 mg Documented by: Estrogens Conjugated (Premarin) 1 dose VAGINAL MoWeFr@0 PRN PRN Reason: vaginitis Famotidine (Pepcid) 20 mg PO DAILY [facility] Last Admin: 12/13/19 06:16 Dose: 20 mg Documented by: Fluoxetine HCl (Prozac) 10 mg PO DAILY [facility] Last Admin: 12/13/19 06:16 Dose: 10 mg Documented by: Furosemide (Lasix) 20 mg PO DAILY [facility] Stop: 12/19/19 06:01 Last Admin: 12/13/19 06:16 Dose: 20 mg Documented by: Lactobacillus Acidophilus (Acidophilus) 1 tablet PO DAILY@0800 [facility] Last Admin: 12/13/19 08:49 Dose: 1 tablet Documented by: Levofloxacin (Levaquin Tablet) 250 mg PO DAILY@0600 [facility] Stop: 12/19/19 12:00 Levothyroxine Sodium (Synthroid) 100 mcg PO DAILY [facility] Last Admin: 12/13/19 06:16 Dose: 100 mcg Documented by: Losartan Potassium (Cozaar) 100 mg PO DAILY@0800 [facility] Last Admin: 12/13/19 08:48 Dose: 100 mg Documented by: Magnesium Oxide (Mag-Ox 400) 400 mg PO BID [facility] Last Admin: 12/13/19 06:16 Dose: 400 mg Documented by: Melatonin (Melatonin) 3 mg PO QHS PRN PRN PRN Reason: INSOMNIA Metoprolol Succinate (Toprol Xl (Beta Merlin)) 150 mg PO DAILY [facility] Last Admin: 12/13/19 06:16 Dose: 150 mg Documented by: Multi-Ingredient Cream (Eucerin) 1 applic TOPICAL 2199 [facility]; Protocol Multivitamins/Minerals (Multivitamin With Minerals (Bkc)) 1 tablet PO DAILY@1200 [facility] Last Admin: 12/13/19 12:05 Dose: 1 tablet Documented by: Nutritional Formula (Lactose Free) (Ensure Enlive) 120 ml PO TID [facility] Last Admin: 12/13/19 13:35 Dose: 120 ml Documented by: Zvvog-4-Bumm Ethyl Esters (Lovaza) 2 gm PO DAILY@0800 [facility] Last Admin: 12/13/19 08:48 Dose: 2 gm Documented by: Ondansetron HCl (Zofran Odt) 4 mg PO Q8H PRN PRN PRN Reason: NAUSEA/VOMITING Polysaccharide Iron Complex (Ferrex 150) 150 mg PO DAILYCM [facility] Last Admin: 12/13/19 08:48 Dose: 150 mg Documented by: Tuberculin PPD (Tubersol, Aplisol, Ppd) 5 tu ID [id number] Stop: 12/17/19 10:01 Discharge Diet: No Restrictions Discharge Activity: Return to Normal Activity, May Shower, Use Walker Weight Bearing Status: Weight bearing as tolerated Call your doctor if you observe: Fever of 101 or Higher, Inability to urinate, Inability to have a bowel movement, Shortness of breath, Chest pain, Uncontrolled pain Home Medications: Medications to take at Discharge Aspirin [Aspirin, Baby] 81 mg PO DAILY@0800 01/20/16 Atorvastatin Calcium [Lipitor] 10 mg PO QHS 01/20/16 Calcium Carb/Vitamin D [Caltrate-600 With Vit D Tab] 1 tab PO BID 01/20/16 Estradiol [Estrace] 1 applic VAGINAL MOWEFR 01/20/16 Fluoxetine [Prozac] 10 mg PO DAILY 01/20/16 Levothyroxine [Synthroid] 100 mcg PO DAILY 01/20/16 Multivit-Min/FA/Lycopen/Lutein [Centrum Silver Tablet] 1 each PO DAILY 01/20/16 Acetaminophen 1,000 mg PO Q6H PRN PRN 12/09/19 Clopidogrel Bisulfate [Clopidogrel] 75 mg PO DAILY 12/09/19 Losartan Potassium [Cozaar] 100 mg PO DAILY 12/09/19 Melatonin 3 mg PO QHS 12/09/19 Metoprolol(XL)Succ [Toprol Xl (Beta Merlin)] 150 mg PO DAILY 12/09/19 [place]-3 Fatty Acids/Fish Oil [Fish Oil 1,000 mg Capsule] 2 cap PO DAILY 12/09/19 Famotidine [Pepcid] 20 mg PO DAILY #30 tab 12/13/19 Furosemide [Lasix] 20 mg PO DAILY #7 tab 12/13/19 Iron Polysaccharide Complex [Ferrex 150] 150 mg PO DAILYCM #30 cap 12/13/19 Lactobacillus Rhamnosus GG [Culturelle] 1 ea PO DAILY #60 cap 12/13/19 Magnesium Oxide [Mag-Ox 400] 400 mg PO BID #60 tab 12/13/19 Menthol/Lanolin/Calamine/Znox [Calmoseptine Ointment] 1 applic TOPICAL 0600,2200 tube 12/13/19 Mineral Oil/Petrolatum,White [Eucerin] 1 applic TOPICAL 2200 jar 12/13/19 levoFLOXacin tablet [Levaquin tablet] 250 mg PO DAILY@0600 #3 tab 12/13/19 Following Prescrptions Were Given to Patient: Lactobacillus Rhamnosus GG [Culturelle] 1 ea PO DAILY #60 cap Transmission Status: Pending to [facility] Iron Polysaccharide Complex [Ferrex 150] 150 mg PO DAILYCM #30 cap Transmission Status: Pending to [facility] Furosemide [Lasix] 20 mg PO DAILY #7 tab Transmission Status: Pending to [facility] levoFLOXacin tablet [Levaquin tablet] 250 mg PO DAILY@0600 #3 tab Transmission Status: Pending to [facility] Magnesium Oxide [Mag-Ox 400] 400 mg PO BID #60 tab Transmission Status: Pending to [facility] Famotidine [Pepcid] 20 mg PO DAILY #30 tab Transmission Status: Pending to [facility] Primary Care Physician: Yared Burgess DO [Primary Care Provider] - Please follow up with your Primary Care Physician in: 1 week. Please Follow Up With: Dr. Cornelio Tyler (gastroenterology) When: 4 weeks Please Follow Up With: Dr. Burgess When: 1 week. Disposition: Home with Home Health Minutes spent on discharge:: 35 Patient Condition:: Stable Medical Necessity - Tobacco Use Smoking Status: Former smoker Tobacco Use: Non-smoker Meaningful Use Info Meaningful Use Diagnoses (Choose all that apply): None applicable
[2019-12-13 14:48] VITALS: BP 157/45; PULSE 66; RESP 16; TEMP 36.9; O2SAT 93
[2019-12-13] MEDS: Atorvastatin Calcium 10 MG Tablet PO (20:46)
[2019-12-14] MEDS: Famotidine 20 MG Tablet PO (06:33)
[2019-12-14] MEDS: Levothyroxine 100 MCG Tablet PO (06:33)
[2019-12-14] MEDS: Magnesium Oxide 400 MG Tablet PO ×2 (06:34→17:05)
[2019-12-14] MEDS: FLUoxetine 10 MG Capsule PO (06:34)
[2019-12-14] MEDS: Clopidogrel Bisulfate 75 MG Tablet PO (06:34)
[2019-12-14 06:35] VITALS: BP 151/49; PULSE 67
[2019-12-14] MEDS: Furosemide 20 MG Tablet PO (06:35)
[2019-12-14] MEDS: levoFLOXacin 250 MG Tablet PO (06:35)
[2019-12-14] MEDS: Metoprolol(XL)Succ 50 MG Tablet 150 MG PO (06:35)
[2019-12-14] MEDS: Menthol/Lanolin/Calamine/Znox 113 GM Tube 1 APPLIC TOPICAL ×2 (06:37→21:00)
[2019-12-14] MEDS: Aspirin 81 MG TAB.CHEW PO (08:18)
[2019-12-14] MEDS: Losartan Potassium 100 MG Tablet PO (08:18)
[2019-12-14] MEDS: Omega-3 Acid Ethyl Esters 1 GM Capsule 2 GM PO (08:18)
[2019-12-14] MEDS: Iron Polysaccharide Complex 150 MG CAPSULE PO (08:18)
[2019-12-14] MEDS: Calcium Carb/Vitamin D 1 TABLET Tablet PO ×2 (08:18→17:05)
[2019-12-14 10:00] VITALS: RESP 16
[2019-12-14] MEDS: Multivitamins,Ther W-Minerals Tablet 1 TABLET PO (11:07)
[2019-12-14 13:53] VITALS: BP 132/64; PULSE 65; RESP 16; TEMP 37.2; O2SAT 96
[2019-12-14] MEDS: Atorvastatin Calcium 10 MG Tablet PO (21:00)
[2019-12-15] MEDS: FLUoxetine 10 MG Capsule PO (05:46)
[2019-12-15] MEDS: Levothyroxine 100 MCG Tablet PO (05:46)
[2019-12-15] MEDS: Famotidine 20 MG Tablet PO (05:46)
[2019-12-15] MEDS: Magnesium Oxide 400 MG Tablet PO ×2 (05:46→17:15)
[2019-12-15] MEDS: Clopidogrel Bisulfate 75 MG Tablet PO (05:46)
[2019-12-15] MEDS: Furosemide 20 MG Tablet PO (05:46)
[2019-12-15] MEDS: levoFLOXacin 250 MG Tablet PO (05:46)
[2019-12-15 05:47] VITALS: BP 135/53; PULSE 66
[2019-12-15] MEDS: Metoprolol(XL)Succ 50 MG Tablet 150 MG PO (05:47)
[2019-12-15] MEDS: Menthol/Lanolin/Calamine/Znox 113 GM Tube 1 APPLIC TOPICAL ×2 (05:49→21:50)
[2019-12-15] MEDS: Calcium Carb/Vitamin D 1 TABLET Tablet PO ×2 (07:44→17:15)
[2019-12-15] MEDS: Omega-3 Acid Ethyl Esters 1 GM Capsule 2 GM PO (07:44)
[2019-12-15] MEDS: Losartan Potassium 100 MG Tablet PO (07:45)
[2019-12-15] MEDS: Aspirin 81 MG TAB.CHEW PO (07:45)
[2019-12-15] MEDS: Iron Polysaccharide Complex 150 MG CAPSULE PO (07:45)
[2019-12-15] MEDS: Multivitamins,Ther W-Minerals Tablet 1 TABLET PO (14:07)
--- NOTE | 2019-12-15 14:09 | NURSING ---
Patient talked with family today.
[2019-12-15 14:48] VITALS: BP 114/72; PULSE 66; RESP 16; TEMP 36.6; O2SAT 96
[2019-12-15] MEDS: Acetaminophen 500 MG Tablet 1000 MG PO (17:16)
[2019-12-15] MEDS: Atorvastatin Calcium 10 MG Tablet PO (21:49)
--- NOTE | 2019-12-16 02:25 | NURSING ---
Pt up to BR, pt ad anusha in room, returned to bed, denies further needs.
[2019-12-16 03:06] LABS: QNTFERON TB Mitogen Value > 10.00 IU/mL (.); QNTFERON TB Nil Value 0.03 IU/mL (.); QNTFERON TB2+ Ag Value 0.06 IU/mL (.)
[2019-12-16 03:10] LABS: QNTIFERON TB Positive Criteria Negative (Negative)
[2019-12-16] MEDS: Magnesium Oxide 400 MG Tablet PO (05:18)
[2019-12-16] MEDS: Clopidogrel Bisulfate 75 MG Tablet PO (05:18)
[2019-12-16] MEDS: FLUoxetine 10 MG Capsule PO (05:18)
[2019-12-16] MEDS: Furosemide 20 MG Tablet PO (05:19)
[2019-12-16] MEDS: Menthol/Lanolin/Calamine/Znox 113 GM Tube 1 APPLIC TOPICAL (05:19)
[2019-12-16] MEDS: levoFLOXacin 250 MG Tablet PO (05:19)
[2019-12-16] MEDS: Levothyroxine 100 MCG Tablet PO (05:19)
[2019-12-16 05:20] VITALS: BP 132/42; PULSE 65
[2019-12-16] MEDS: Metoprolol(XL)Succ 50 MG Tablet 150 MG PO (05:20)
[2019-12-16] MEDS: Famotidine 20 MG Tablet PO (05:21)
[2019-12-16] MEDS: Omega-3 Acid Ethyl Esters 1 GM Capsule 2 GM PO (08:41)
[2019-12-16] MEDS: Iron Polysaccharide Complex 150 MG CAPSULE PO (08:41)
[2019-12-16] MEDS: Aspirin 81 MG TAB.CHEW PO (08:41)
[2019-12-16] MEDS: Calcium Carb/Vitamin D 1 TABLET Tablet PO (08:42)
[2019-12-16 08:48] VITALS: BP 127/39; PULSE 75; RESP 18; O2SAT 93
[2019-12-16] MEDS: Losartan Potassium 100 MG Tablet PO (08:49)
[2019-12-16] MEDS: Multivitamins,Ther W-Minerals Tablet 1 TABLET PO (11:29)
[2019-12-16 14:00] VITALS: BP 109/49; PULSE 72; RESP 14; TEMP 36.7; O2SAT 93
--- NOTE | 2019-12-17 13:47 | MDS.RN ---
Information for the mds was obtained from review of the clinical record, interview of resident, staff, and direct observation of resident's care.
== END 2019-12-16 14:15 | disposition home health service (06) | DRG 391 ==
PROVIDERS: Admitting Provider Family Medicine Geriatric Medicine; PCP Student in an Organized Health Care Education/Training Program; Visit Provider Family Medicine Geriatric Medicine
DX: K52.9 Noninfective gastroenteritis and colitis, unspecified (principal); J18.9 Pneumonia, unspecified organism; I50.32 Chronic diastolic (congestive) heart failure; I25.10 Atherosclerotic heart disease of native coronary artery without angina pectoris; E03.9 Hypothyroidism, unspecified; F32.9 Major depressive disorder, single episode, unspecified; K21.9 Gastro-esophageal reflux disease without esophagitis; E78.5 Hyperlipidemia, unspecified; I11.0 Hypertensive heart disease with heart failure; I25.2 Old myocardial infarction; S00.93XD Contusion of unspecified part of head, subsequent encounter; W19.XXXD Unspecified fall, subsequent encounter; D50.9 Iron deficiency anemia, unspecified; Z87.891 Personal history of nicotine dependence; E83.42 Hypomagnesemia
CPT/HCPCS: 36415; 71046; 80048; 85025; 86480; 87635; 97110; 97116; 97162; 97166; 97530; 97535; 97802; 99251; G2023; G0463; U0004